=== PATIENT | female | born 1995 | race Caucasian/White ===

== ENCOUNTER 2024-01-09 17:18 | Emergency (ER) | payer BC ==
[2024-01-09 17:30] VITALS: BP 102/62; PULSE 87
== END 2024-01-09 17:55 | disposition home or self-care (01) ==
LOC: KA.ED 17:18
DX: T25.222A Burn of second degree of left foot, initial encounter (principal); Z88.1 Allergy status to other antibiotic agents; Z88.2 Allergy status to sulfonamides; Z91.040 Latex allergy status; Z79.899 Other long term (current) drug therapy; X19.XXXA Contact with other heat and hot substances, initial encounter
CPT/HCPCS: 99283

== ENCOUNTER 2025-06-01 13:59 | Emergency (ER) | payer BC, MEDICAID ==
[2025-06-01] MEDS ORDERED: Sodium Chloride 0.9% 10 ML Syringe FLUSH PRN (14:10)
[2025-06-01 14:34] LABS: BASOPHILS ABSOLUTE AUTO 0.01 10^3/uL (0.00-0.10); BASOPHILS PERCENT AUTO 0.1 % (0.0-1.0); EOSINOPHILS ABSOLUTE AUTO 0.00 10^3/uL (0.10-0.30); EOSINOPHILS PERCENT AUTO 0.0 % (1.0-3.0); IMMATURE GRAN ABSOLUTE AUTO 0.04 10^3/uL (0.00-0.04); IMMATURE GRAN PERCENT AUTO 0.6 % (0.0-0.4); LYMPHOCYTES ABSOLUTE AUTO 0.72 10^3/uL (1.00-4.00); LYMPHOCYTES PERCENT AUTO 10.4 % (20.0-40.0); MEAN PLATELET VOLUME 9.7 fL (7.4-10.4); MONOCYTES ABSOLUTE AUTO 0.35 10^3/uL (0.10-0.80); MONOCYTES PERCENT AUTO 5.1 % (2.0-8.0); NEUTROPHILS ABSOLUTE AUTO 5.78 10^3/uL (2.50-7.00); NEUTROPHILS PERCENT AUTO 83.8 % (50.0-70.0); PLATELET COUNT,PLT 235 10^3/uL (150-400); RED BLOOD CELL COUNT 4.02 10^6/uL (3.80-5.50); RED CELL DISTRIBUTION WIDTH 12.3 % (11.5-14.5); WHITE BLOOD CELL COUNT,WBC 6.90 10^3/uL (5.00-10.00)
[2025-06-01 14:38] LABS: APPEARANCE,URINE TURBID (CLEAR); GLUCOSE,URINE NEGATIVE (NEGATIVE); OCCULT BLOOD,URINE MODERATE (NEGATIVE)
[2025-06-01 14:46] LABS: EPITHELIAL CELLS,URINE RARE /LPF; SQUAMOUS EPITHELIAL CELLS,UR RARE /HPF (NOT SEEN)
[2025-06-01 14:49] LABS: BLOOD UREA NITROGEN,BUN 8.0 mg/dL (7-18); CARBON DIOXIDE,CO2 23.8 mmol/L (21.0-32.0); CHLORIDE,CL 99.0 mmol/L (98-107); CREATININE 0.51 mg/dL (0.51-1.17); EST CRCL DRUG DOSING (CG) 137.25 mL/min; ESTIMATED GFR 129.0 mL/min (>=60); GLUCOSE RANDOM 94.0 mg/dL (70-140); POTASSIUM,K 3.2 mmol/L (3.5-5.1); SODIUM,NA 136.0 mmol/L (136-145)
[2025-06-01] MEDS: Ondansetron 4 MG/2 ML SDV IVPUSH ONE (15:38)
[2025-06-01] MEDS: Amoxicillin/Clavulanate K 500-125 MG Tab PO SCH (16:12)
[2025-06-01] MEDS: Sennosides/Docusate Sodium 50-8.6 MG Tab PO SCH (16:34)
[2025-06-01] MEDS: Potassium Chloride 10 MEQ Tab.ER PO ONE ×2 (16:34→16:49)
[2025-06-01] MEDS: Sennosides/Docusate Sodium 50-8.6 MG Tab ONE (16:41)
[2025-06-01] MEDS: Ondansetron 4 MG Tab.DIS PO PRN (16:50)
[2025-06-01] MEDS: Sennosides/Docusate Sodium 50-8.6 MG Tab PO ONE (16:50)
[2025-06-01] MEDS: Amoxicillin/Clavulanate K 500-125 MG Tab PO ONE (16:50)
[2025-06-01 17:12] VITALS: BP 112/72; PULSE 112
== END 2025-06-01 16:58 | disposition home or self-care (01) ==
LOC: KA.ED 13:59
DX: H65.191 Other acute nonsuppurative otitis media, right ear (principal); E87.6 Hypokalemia; K59.09 Other constipation; T83.518A Infection and inflammatory reaction due to other urinary catheter, initial encounter; Z88.2 Allergy status to sulfonamides; Z91.040 Latex allergy status; Z79.899 Other long term (current) drug therapy
CPT/HCPCS: 73501; 74021; 80048; 81001; 85025; 87086; 87088; 96374; 99284; A9270; J2405